=== PATIENT | female | born 1955 | race Caucasian/White ===

== ENCOUNTER 2024-10-03 12:57 | Emergency (ER) | payer BC, OTHER ==
[2024-10-03 13:08] VITALS: BMI 29.2
[2024-10-03] MEDS ORDERED: ACETAMINOPHEN INJECTION 100 ML ONE (14:13)
[2024-10-03 14:17] LABS: HEMOGLOBIN 13.8 GM/dL (10.7-15.3); MCH 29.1 pg (25.7-33.7); MCHC 32.9 g/dl (32.0-36.0); MEAN CELL VOLUME 88.5 fl (80-96); MEAN PLT VOLUME 6.6 fl (7.5-11.1); PLATELET COUNT 347 10^3/uL (134-434); RBC 4.75 M/mm3 (3.60-5.2); RDW 14.3 % (11.6-15.6)
[2024-10-03] MEDS: ACETAMINOPHEN 1000 MG/100 ML BAG IVPB ONE (14:26)
[2024-10-03] MEDS: SODIUM CHLORIDE 0.9% 1000 ML INFUS.BAG IV ONE (14:26)
[2024-10-03 14:45] LABS: POTASSIUM 3.8 mmol/L (3.5-5.1)
[2024-10-03 14:48] LABS: CALCIUM 8.8 mg/dL (8.5-10.1)
[2024-10-03 14:49] LABS: ALBUMIN 3.3 g/dl (3.4-5.0); BLOOD UREA NITROGEN 14.6 mg/dL (7-18); MAGNESIUM 2.2 mg/dL (1.8-2.4)
[2024-10-03 14:52] LABS: PHOSPHOROUS 2.4 mg/dL (2.5-4.9)
[2024-10-03 14:53] LABS: ANISOCYTOSIS 0; BILIRUBIN,TOTAL 0.4 mg/dL (0.2-1); MACROCYTOSIS 0; TOT PROT 6.5 g/dl (6.4-8.2)
[2024-10-03 16:47] VITALS: BP 134/84; PULSE 85; RESP 16; TEMP 97.6
[2024-10-03 16:59] LABS: HIV INTERPRETATION NEGATIVE (NEGATIVE)
== END 2024-10-03 16:44 | disposition home or self-care (01) ==
LOC: JER 12:57
PROC: 3E033NZ Introduction of Analgesics, Hypnotics, Sedatives into Peripheral Vein, Percutaneous Approach (ICD-10-PCS; principal; 2024-10-03)
DX: R19.7 Diarrhea, unspecified (principal); R10.32 Left lower quadrant pain
CPT/HCPCS: 36415; 80053; 83605; 83690; 83735; 84100; 85025; 86803; 87389; 93005; 93010; 99284-25; J0131